=== PATIENT | female | born 1950 | race Caucasian/White ===

== ENCOUNTER → 2017-03-10 | Outpatient (CLI) | payer OTHER ==
[~2017-03-10] VITALS: Ht 147.3 cm; Wt 42.8 kg
[~2017-03-10] MED LIST: ACCUPRIL10 MG PO; ACCUPRIL40 MG PO; ASPIRIN EC81 M1 PO; CHEWABLE ASPIRI81 MG PO; CIPRO PO; FERROUS GLUCON324 M1 PO; FORTAMET1000 MG PO; HCTZ PO; INSULIN SC; IRON256 MG PO; K-DUR20 ME1 PO; LEVEMIR100 UNITS/ SUBQ; LIPITOR20 MG PO; LIPITOR80 MG PO; LO-DOSE ASPIRIN81 M1 PO; METFORMIN PO; NORVASC10 MG PO; ONGLYZA5 MG PO; QUINAPRIL HCL20 MG PO; REMERON15 MG PO; TRADJENTA5 MG PO; ZOFRANODT PO
[2017-03-10 06:40] LABS: HEMATOCRIT 26.2 % (35.0-45.0); HEMOGLOBIN 8.7 gm/dL (12.0-16.0); MEAN CORPUSCULAR HEMOGLOBIN 29.5 PG (28-34); MEAN CORPUSCULAR HGB CONC 33.2 g/dL (30-36); MEAN PLATELET VOLUME 7.7 FL (6.5-11.5); RED BLOOD COUNT 2.94 X10e (3.90-5.30); WHITE BLOOD COUNT 5.9 X10e3 (4.0-10.5)
[2017-03-10 06:53] LABS: PARTIAL THROMBOPLASTIN TIME 24.7 SECONDS (23.5-31.3); PROTHROMBIN TIME (PATIENT) 10.6 SECONDS (10.0-11.7)
== END | disposition home or self-care (01) ==
LOC: CIVR 06:03
PROVIDERS: Internal Medicine Nephrology
DX: R31.9 Hematuria, unspecified (principal); R80.9 Proteinuria, unspecified
CPT/HCPCS: 36415; 85027; 85610; 85730

== ENCOUNTER → 2017-03-17 | Outpatient (CLI) | payer OTHER ==
--- NOTE | ~2017-03-17 | US77 ---
[facility] A Service of [facility] RADIOLOGY TEXT RESULTS PATIENT: JOHANA PEREZ LOCATION: [facility] : 46 UNIT #: [id number] AGE: [address]: Seth Whiteside MD SEX: F ORDER DR: [id number] [facility]. [place], [place] [address] [id number] MR#: [id number] Acc #: [id number] NAME: JOHANA PEREZ : 1950 SEX: F STUDY DATE/TIME: 03/17/2017 12:27 UNIT: [facility] ROOM: STUDY DESCRIPTION: US Kidney Bilateral Complete Attending Physician: Seth Whiteside M.D. Referring Physician: Seth Whiteside M.D. Ordering Physician: Seth Whiteside M.D. Primary Care Physician: Seth Whiteside M.D. MEDICAL IMAGING REPORT This report is preliminary unless electronic signature is present EXAM Renal ultrasound HISTORY Chronic kidney disease stage III. TECHNIQUE Alfaro-scale and color Doppler sonographic images of the kidneys and bladder. FINDINGS No hydronephrosis is identified on either side. There is an echogenic focus identified within the inferior pole of the right kidney. It does not show any shadowing but still may reflect a non-obstructing stone. No solid or cystic renal masses are seen on the right. Patient does have a simple-appearing cyst in the left kidney measuring 1.4 x 1.3 x 1.4 cm. Urinary bladder appears normal. IMPRESSION 1. Left renal cysts. 2. Right lower pole focus seen within the inferior pole of the left kidney without really any significant shadowing. A non-obstructing stone would be a consideration. Again, there is no evidence of hydronephrosis. Dictated by... Cary Oconnor M.D. THIS IS AN ELECTRONICALLY VERIFIED REPORT Cary Oconnor M.D. at 03/20/2017 4:56 PM AFF/pcl [facility] A Service of [facility] RADIOLOGY TEXT RESULTS PATIENT: JOHANA PEREZ LOCATION: [facility] : 46 UNIT #: [id number] AGE: [address]: Seth Whiteside MD SEX: F ORDER DR: TD: 03/17/2017 20:31 JOB #: [id number] MEDICAL IMAGING REPORT Page 1 of 1 COPY
== END | disposition home or self-care (01) ==
LOC: CWCC 11:54
DX: N18.3 Chronic kidney disease, stage 3 (moderate) (principal); Q61.02 Congenital multiple renal cysts
CPT/HCPCS: 76770